=== PATIENT | female | born 1955 | race Caucasian/White ===

== ENCOUNTER 2019-02-09 09:44 | Emergency (ER) | payer OTHER ==
--- NOTE | 2019-02-09 10:03 | PDOC ---
History of Present Illness - General Chief Complaint: Syncope/Near Syncope Stated Complaint: SYNCOPY Time Seen by Provider: 02/09/19 10:03 History Source: Patient Exam Limitations: No Limitations - History of Present Illness Initial Comments: 63 year old female with PMH HTN, hypertrophic cardiomyopathy without AICD, cardiac murmur presented to ED for syncopal episode occurring today just [employer] while at work. 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 She reported while at work her co -workers noticed she did "not look well" and she felt lightheaded at that time. She sat down in a chair, and then suddenly syncopized, falling out of her chair onto the ground. 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 Pt denied head injury, reported that she slowly slouched forward out of the chair. Pt denied chest pain, shortness of breath, vomiting, diarrhea, fever, palpitations, lower extremity swelling. PCP: Negar Gonazlez Cardiology: Werner Solis [phone] Urology: Ahn ROS General: denied fever, chills, generalized weakness. HEENT: denied sore throat, rhinorrhea, ear pain. Cardiovascular: admitted to syncope. denied chest pain, palpitations, diaphoresis. Respiratory: denied shortness of breath, cough, sputum production, hemoptysis. Gastrointestinal: denied abdominal pain, nausea, vomiting, diarrhea, constipation, blood in stool. Genitourinary: denied dysuria, increased urinary frequency, hematuria, urinary incontinence, flank pain. Back: denied back pain. Musculoskeletal: denied joint pain, muscle pain, joint swelling. Neurological: denied headache, dizziness, numbness, tingling, weakness. Integumentary: denied rash, laceration, abrasion. Hematologic/Lymphatic: denied bruising or bleeding. PE Constitutional: Well-nourished, Well-developed, appearing stated age. HEENT: head is normocephalic, atraumatic. EOMI. PERRLA. Neck: supple. Full ROM. Cardiovascular: regular heart rhythm. aortic systolic murmur. no pericardial friction rub. Respiratory: clear to auscultation bilaterally. no crackles, rhonchi or wheezing. no stridor. Gastrointestinal: soft, nontender. normal bowel sounds. no rebound, guarding, masses. Extremities: peripheral pulses intact. no lower extremity edema. Neurological: CN 2-12 grossly intact. moves all four extremities. Psych: awake, alert, oriented x3. follows commands. answers questions appropriately Dr. Werner Solis paged, reported he wants the pt transferred to [facility]. Past History - Past Medical History Allergies/Adverse Reactions: Allergies Allergy/AdvReac Type Severity Reaction Status Date / Time No Known Allergies Allergy Verified 02/09/19 10:02 Home Medications: Ambulatory Orders Amlodipine Besylate 10 mg PO DAILY 02/09/19 Aspirin [ASA -] 81 mg PO DAILY 02/09/19 Lisinopril 10 mg PO DAILY 02/09/19 Metoprolol Succinate [Toprol Xl] 50 mg PO DAILY 02/09/19 ED Treatment Course - LABORATORY CBC & Chemistry Diagram: 02/09/19 10:20 02/09/19 10:20 Medical Decision Making - Medical Decision Making 63 year old female with above PMH presented to ED for syncope. Pt's advanced developer Dr. Solis reported that he would like pt transferred to [facility] , and he will find an accepting physician. Initial Vital Signs Temp Pulse Resp BP Pulse Ox 98.0 F 65 18 103/64 100 02/09/19 10:02 02/09/19 10:02 02/09/19 10:02 02/09/19 10:02 02/09/19 10:02 Afebrile. No tachycardia. No tachypnea. Mild hypotension. No hypoxia on room air. Labs ordered: CBC, CMP, cardiac profile Imaging ordered: CXR Medications ordered: ASA 324 mg PO chew once EKG performed at 1000: rate 61, regular rhythm, normal axis, normal intervals, ST elevation seen V1-V2, flipped T I/aVL. 02/09/19 10:45 Dr. Solis faxed old EKG. 09/18/18: rate 66, regular rhythm, normal axis, normal intervals, ST elevation at V1-V3, biphasic T in I, flipped T in aVL. CBC WBC 6.1 K/mm3 (4.0-10.0) 02/09/19 10:20 RBC 3.35 M/mm3 (3.60-5.2) L 02/09/19 10:20 Hgb 10.2 GM/dL (10.7-15.3) L 02/09/19 10:20 Hct 29.9 % (32.4-45.2) L 02/09/19 10:20 MCV 89.2 fl (80-96) 02/09/19 10:20 MCH 30.5 pg (25.7-33.7) 02/09/19 10:20 MCHC 34.1 g/dl (32.0-36.0) 02/09/19 10:20 RDW 13.2 % (11.6-15.6) 02/09/19 10:20 Plt Count 149 K/MM3 (134-434) 02/09/19 10:20 MPV 9.0 fl (7.5-11.1) 02/09/19 10:20 Absolute Neuts (auto) 3.8 K/mm3 (1.5-8.0) 02/09/19 10:20 Neutrophils % 62.8 % (42.8-82.8) 02/09/19 10:20 Lymphocytes % 22.4 % (8-40) 02/09/19 10:20 Monocytes % 4.8 % (3.8-10.2) 02/09/19 10:20 Eosinophils % 8.6 % (0-4.5) H 02/09/19 10:20 Basophils % 1.4 % (0-2.0) 02/09/19 10:20 Nucleated RBC % 0 % (0-0) 02/09/19 10:20 No leukocytosis. Mild normocytic anemia. 02/09/19 11:15 CMP Sodium 142 mmol/L (136-145) 02/09/19 10:20 Potassium 3.8 mmol/L (3.5-5.1) 02/09/19 10:20 Chloride 112 mmol/L (98-107) H 02/09/19 10:20 Carbon Dioxide 27 mmol/L (21-32) 02/09/19 10:20 Anion Gap 4 MMOL/L (8-16) L 02/09/19 10:20 BUN 40.1 mg/dL (7-18) H 02/09/19 10:20 Creatinine 1.8 mg/dL (0.55-1.3) H 02/09/19 10:20 Est GFR (CKD-EPI)AfAm 34.60 02/09/19 10:20 Est GFR (CKD-EPI)NonAf 29.85 02/09/19 10:20 Random Glucose 100 mg/dL (74-106) 02/09/19 10:20 Calcium 10.2 mg/dL (8.5-10.1) H 02/09/19 10:20 Magnesium 2.0 mg/dL (1.8-2.4) 02/09/19 10:20 Total Bilirubin 0.2 mg/dL (0.2-1) 02/09/19 10:20 AST 15 U/L (15-37) 02/09/19 10:20 ALT 19 U/L (13-61) 02/09/19 10:20 Alkaline Phosphatase 73 U/L (45-117) 02/09/19 10:20 Creatine Kinase 66 U/L (26-192) 02/09/19 10:20 Troponin I 0.02 ng/ml (0.00-0.05) 02/09/19 10:20 B-Natriuretic Peptide 4158.9 pg/ml (5-125) H 02/09/19 10:20 Total Protein 5.9 g/dl (6.4-8.2) L 02/09/19 10:20 Albumin 3.6 g/dl (3.4-5.0) 02/09/19 10:20 Lipase 482 U/L (73-393) H 02/09/19 10:20 Troponin wnl. BNP elevated, no prior to compare. Lipase wnl, not 3X normal. No clinically significant electrolyte abnormalities. JOSH. CXR report: Name: [facility] DEPARTMENT OF RADIOLOGY Phys: Enid Olguin RESIDENT : 1955 Age: 63 Sex: F [facility] Acct: [id number] Loc: [address] Exam Date: 02/09/19 Status: [place] [id number] Unit Number: [id number] EXAM#: TYPE/EXAM: RESULT: [id number] RAD/CHEST X-RAY PORTABLE* Chest: Syncopal episode. Cardiomyopathy. A single AP view of the chest reveals a weak inspiration with clear lungs, sharp angles and intact bones and soft tissues. An acute chest process is not seen. With the weak inspiration but there is a prominent heart, unfolded aorta but normal neil. Correlation recommended Impression : Weak inspiration. Prominent heart. No acute chest pathology. Reported By: Anthony Johnson MD 02/09/19 1112 Pt is mildly hypotensive, but also has elevation of BNP. Will hold fluid for now. Pt to be transferred to Dr. Braga's service at [facility]. Pt consented to transfer. Pending transfer. 02/09/19 11:57 Transfer center called by , reported still working on getting a bed. 02/09/19 13:43 Dr. Braga spoke with Dr. Tomas, and he accepted the pt for transfer. 02/09/19 14:33 Second troponin 0.02 02/09/19 14:37 Per transfer center reported EMS will arrive in 15 minutes. 02/09/19 15:47 Pt left ED with EMS. Discharge - Discharge Information Problems reviewed: Yes Clinical Impression/Diagnosis: Hypertrophic cardiomyopathy, Syncope Condition: Guarded Disposition: TRANSFER ACUTE CARE/OTHER HOSP - Admission No - Follow up/Referral Referrals: Tova Gonzalez MD [Primary Care Provider] - - Patient Discharge Instructions - Post Discharge Activity
[2019-02-09 10:09] VITALS: BMI 32.2
[2019-02-09] MEDS ORDERED: ASPIRIN 81 MG CHEWABLE TABLETS PO ONE (10:17)
[2019-02-09] MEDS ORDERED: ASPIRIN 81 MG CHEWABLE TABLETS ONE (10:28)
[2019-02-09 10:37] LABS: BASO % 1.4 % (0-2.0); EOS % 8.6 % (0-4.5); HEMATOCRIT 29.9 % (32.4-45.2); HEMOGLOBIN 10.2 GM/dL (10.7-15.3); LYMPH % 22.4 % (8-40); MCH 30.5 pg (25.7-33.7); MCHC 34.1 g/dl (32.0-36.0); MEAN CELL VOLUME 89.2 fl (80-96); MONO % 4.8 % (3.8-10.2); NEUT % 62.8 % (42.8-82.8); PLATELET COUNT 149 K/MM3 (134-434); RBC 3.35 M/mm3 (3.60-5.2); RDW 13.2 % (11.6-15.6); WHITE BLOOD COUNT 6.1 K/mm3 (4.0-10.0)
[2019-02-09 11:00] LABS: INR 0.95 (0.83-1.09); PROTHROMBIN TIME (PATIENT) 11.2 SEC (9.7-13.0)
[2019-02-09 11:02] LABS: ACTIVATED PTT 35.2 SECONDS (25.2-36.5)
[2019-02-09 11:03] LABS: ALBUMIN 3.6 g/dl (3.4-5.0); BILIRUBIN,TOTAL 0.2 mg/dL (0.2-1); BLOOD UREA NITROGEN 40.1 mg/dL (7-18); CALCIUM 10.2 mg/dL (8.5-10.1); CREATININE 1.8 mg/dL (0.55-1.3); POTASSIUM 3.8 mmol/L (3.5-5.1); TOT PROT 5.9 g/dl (6.4-8.2)
--- NOTE | 2019-02-09 11:03 | PDOC ---
Attending Attestation - Resident Resident Name: Enid Olguin - ED Attending Attestation I have performed the following: I have examined & evaluated the patient, The case was reviewed & discussed with the resident, I agree w/resident's findings & plan, Exceptions are as noted - HPI HPI: 02/09/19 10:57 63 F with h/o HTN, HCM presenting to ED with syncopal episode. Pt notes feeling ill for the past few days. Today, she was at work when she began to feel lightheaded. Her co-workers told her she looked unwell and had her sit down in a chair. Pt subsequently lost consciousness, slumped down in her chair. Denies falling to the floor, denies headstrike. Was reportedly unconscious for under a minute. Pt now reports she feels back to baseline. Denies CP/SOB/palpitations. Denies lightheadedness. - Physicial Exam PE: 02/09/19 10:59 "GENERAL: Awake, alert, and fully oriented, in no acute distress. HEAD: No signs of trauma EYES: PERRLA, EOMI, sclera anicteric, conjunctiva clear ENT: Auricles normal inspection, hearing grossly normal, nares patent, oropharynx clear without exudates. Moist mucosa NECK: Nontender, no stepoffs, Normal ROM, supple, no lymphadenopathy, JVD, or masses LUNGS: Breath sounds equal, clear to auscultation bilaterally. No wheezes, and no crackles HEART: Regular rate and rhythm, normal S1 and S2, no murmurs, rubs or gallops ABDOMEN: Soft, nontender, normoactive bowel sounds. No guarding, no rebound. No masses EXTREMITIES: Normal range of motion, no edema. No clubbing or cyanosis. No cords, erythema, or tenderness NEUROLOGICAL: Cranial nerves II through XII intact. 5/5 strength and sensation in all extremities, Normal speech, normal gait, normal cerebellar function SKIN: Warm, Dry, normal turgor, no rashes or lesions noted. - Critical Care Time Total Critical Care Time: 60 Critical Care Statement: The care of this patient involved high complexity decision making to prevent further life threatening deterioration of the patient 's condition and/or to evaluate & treat vital organ system(s) failure or risk of failure. - Medical Decision Making 02/09/19 10:59 63 F with syncopal episode. Concerning for ventricular arrhythmia due to h/o HCM. Pt's EKG today is unchanged from previous (faxed by Dr. Solis). 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 Solis, who recommends txfer to [facility] for interventional cards eval. - Labs, trop - Txfer to [facility] 02/09/19 13:[address] Solis has spoken to Dr. Braga, who will be accepting pt Awaiting confirmation from Dr. Braga 02/09/19 13:[address] Braga, who accepts pt for transfer
[2019-02-09 11:04] LABS: N-TERMINAL BNP 4158.9 pg/ml (5-125)
[2019-02-09 16:18] VITALS: BP 128/68; PULSE 62; TEMP 97.9
--- NOTE | 2019-02-11 20:26 | EKG ---
Test Reason : Blood Pressure : / mmHG Vent. Rate : 057 BPM Atrial Rate : 057 BPM P-R Int : 172 ms QRS Dur : 100 ms QT Int : 468 ms P-R-T Axes : 069 004 083 degrees QTc Int : 455 ms POOR DATA QUALITY, INTERPRETATION MAY BE ADVERSELY AFFECTED SINUS BRADYCARDIA POSSIBLE LEFT ATRIAL ENLARGEMENT LEFT VENTRICULAR HYPERTROPHY WITH REPOLARIZATION ABNORMALITY ABNORMAL ECG WHEN COMPARED WITH ECG OF 09-FEB-2019 10:00, ST NOW DEPRESSED IN LATERAL LEADS T WAVE INVERSION MORE EVIDENT IN LATERAL LEADS Confirmed by SYLVIE GILBERT MD ([id number]) on 02/11/2019 8:25:46 PM Referred By: Confirmed By:SYLVIE GILBERT MD
--- NOTE | 2019-02-11 20:28 | EKG ---
Test Reason : Blood Pressure : / mmHG Vent. Rate : 061 BPM Atrial Rate : 061 BPM P-R Int : 174 ms QRS Dur : 100 ms QT Int : 458 ms P-R-T Axes : 074 011 068 degrees QTc Int : 461 ms NORMAL SINUS RHYTHM LEFT VENTRICULAR HYPERTROPHY WITH REPOLARIZATION ABNORMALITY ABNORMAL ECG NO PREVIOUS ECGS AVAILABLE Confirmed by SYLVIE GILBERT MD ([id number]) on 02/11/2019 8:28:37 PM Referred By: Confirmed By:SYLVIE GILBERT MD
== END 2019-02-09 15:30 | disposition short-term general hospital (02) ==
LOC: JER 09:44
DX: R51 Headache (principal); I42.2 Other hypertrophic cardiomyopathy; I10 Essential (primary) hypertension; R01.1 Cardiac murmur, unspecified
CPT/HCPCS: 36415; 71045-TC-FY; 80053; 82550; 83690; 83735; 83880; 84484; 85025; 85610; 85730; 93005; 93010; 99285-25

== ENCOUNTER 2023-09-21 18:15 | Emergency (ER) | payer OTHER ==
[2023-09-21 18:26] VITALS: BP 125/66; PULSE 65; RESP 18; TEMP 98; BMI 28.3
[2023-09-21] MEDS ORDERED: ASPIRIN 81 MG CHEWABLE TABLETS ONE (19:26)
[2023-09-21] MEDS: ASPIRIN 81 MG CHEWABLE TABLETS PO ONE (19:29)
[2023-09-21 19:46] LABS: VENOUS BASE EXCESS -2.8 mmol/L (-2-2); VENOUS O2 SATURATION 87.6 % (70-80); VENOUS PCO2 38.7 mmHg (38-52); VENOUS PH 7.374 (7.310-7.410)
[2023-09-21 19:54] LABS: BASO % 1.1 % (0-2.0); EOS % 5.6 % (0-4.5); HEMOGLOBIN 11.8 GM/dL (10.7-15.3); LYMPH % 20.7 % (8-40); MCH 29.7 pg (25.7-33.7); MCHC 33.9 g/dl (32.0-36.0); MEAN CELL VOLUME 87.7 fl (80-96); MEAN PLT VOLUME 8.4 fl (7.5-11.1); MONO % 4.3 % (3.8-10.2); NEUT % 68.3 % (42.8-82.8); PLATELET COUNT 168 10^3/uL (134-434); RBC 3.99 M/mm3 (3.60-5.2); RDW 12.9 % (11.6-15.6); WHITE BLOOD COUNT 8.3 K/mm3 (4.0-10.0)
[2023-09-21 20:04] LABS: POTASSIUM 4.2 mmol/L (3.5-5.1)
[2023-09-21 20:06] LABS: CALCIUM 10.8 mg/dL (8.5-10.1)
[2023-09-21 20:07] LABS: ALBUMIN 3.6 g/dl (3.4-5.0); BLOOD UREA NITROGEN 26.8 mg/dL (7-18)
[2023-09-21 20:10] LABS: CREATININE 1.2 mg/dL (0.55-1.3)
[2023-09-21 20:11] LABS: BILIRUBIN,TOTAL 0.3 mg/dL (0.2-1); TOT PROT 6.1 g/dl (6.4-8.2)
[2023-09-21 20:17] LABS: INR 0.93 (0.83-1.09); PROTHROMBIN TIME (PATIENT) 10.5 SEC (9.7-13.0)
[2023-09-21 20:19] LABS: ACTIVATED PTT 35.2 SECONDS (25.2-36.5)
== END 2023-09-21 22:46 | disposition left against medical advice (07) ==
LOC: JER 18:15
DX: R07.89 Other chest pain (principal); R94.31 Abnormal electrocardiogram [ECG] [EKG]; R06.02 Shortness of breath; Z20.822 Contact with and (suspected) exposure to COVID-19
CPT/HCPCS: 0241U-QW; 36415; 71045-TC-FY; 80053; 82803; 83880; 84484; 85025; 85610; 85730; 93005; 93010; 99285-25